=== PATIENT | male | born 1955 | race Caucasian/White ===

== ENCOUNTER → 2017-02-15 | Outpatient (CLI) | payer OTHER ==
[~2017-02-15] MED LIST: METHACHOLINE KIT (J7674) INH ONE
--- NOTE | 2017-02-15 13:47 | PFTRPT ---
Tech: Sharan SANTO RRT Age: 62 Sex: Male Race: Height: 73.00 Inches Weight: 252.00 Lbs BSA: 2.37 Diagnosis: R06.02 METHACHOLINE CHALLENGE REPORT: ORDERING PROVIDER: NAVYA Purcell DATE OF SERVICE: 02/15/17 INTERPRETATION: The study was of excellent technical quality. Under protocol, methacholine was administered. Even after a maximal dose of 25 mg (188.875 CDUs) of methacholine , no provocation dose was ever achieved. IMPRESSION: Negative methacholine challenge study. MTDD
== END ==
LOC: M CARPUL 12:22
PROVIDERS: ATTEND Nurse Practitioner Adult Health
DX: R06.02 Shortness of breath (principal)

== ENCOUNTER → 2018-07-28 | Outpatient (REF) | payer OTHER | LOC: M LAB REF 16:34 | PROVIDERS: ATTEND Family Medicine Addiction Medicine | DX: Z12.5 Encounter for screening for malignant neoplasm of prostate (principal) ==

== ENCOUNTER → 2019-03-02 | Outpatient (REF) | payer OTHER | LOC: M LAB LCGH 15:20 | PROVIDERS: ATTEND Surgery | DX: K63.5 Polyp of colon (principal) ==

== ENCOUNTER 2025-05-21 11:16 | Inpatient (IN) | payer BC, MEDICARE, SELFPAY ==
[~2025-05-21] VITALS: Ht 188 cm; Wt 104.9 kg
[2025-05-21] MEDS ORDERED: ATEN25TA PO (11:22)
[2025-05-21 11:57] LABS: BASO # 0.1 10^3/uL (0.0-0.2); BASO % 0.7 % (0.0-1.0); EOS # 0.3 10^3/uL (0.0-0.5); EOS % 2.3 % (0.0-3.0); LYMPH # 2.6 10^3/uL (1.5-5.0); LYMPH % 21.7 % (24.0-44.0); MONO # 1.1 10^3/uL (0.0-0.8); MONO % 9.3 % (2.0-8.0); NEUTROPHILS # 8.0 10^3/uL (1.5-8.5); NEUTROPHILS % 65.8 % (36.0-66.0); PLATELET COUNT, AUTOMATED 212 10^3/uL (150-450)
[2025-05-21] MEDS ORDERED: OXYB-54 PO (12:04)
[2025-05-21] MEDS ORDERED: ROSU10TA90 PO (12:04)
[2025-05-21] MEDS ORDERED: JARD1TAB3 PO (12:04)
[2025-05-21] MEDS ORDERED: JANU100T PO (12:04)
[2025-05-21] MEDS ORDERED: OMEP40CA5 PO (12:04)
[2025-05-21] MEDS ORDERED: MELO15TA28 PO (12:04)
[2025-05-21] MEDS ORDERED: GABA-1171 PO (12:04)
[2025-05-21] MEDS ORDERED: ISOVUE-370 76% 100 ML VIAL As Ordered ONE (12:10)
[2025-05-21 12:23] LABS: CK-MB VALUE MASS 2.4 NG/ML (<3.6)
[2025-05-21 12:25] LABS: ALT/SGPT 22.0 U/L (7.0-40); AST/SGOT 30.0 U/L (<34); CALCIUM LEVEL 9.7 MG/DL (8.3-10.6); CARBON DIOXIDE LEVEL 24.0 MMOL/L (20-31); CHLORIDE LEVEL 104.0 MMOL/L (98-107); CREATININE FOR GFR 1.29 MG/DL (0.70-1.30); GLOMERULAR FILTRATION RATE 59.3 (>42); POTASSIUM SERUM 4.1 MMOL/L (3.5-5.1); SODIUM LEVEL 141.0 MMOL/L (136-145)
[2025-05-21 12:26] LABS: CPK CREATINE PHOSPHOKINASE 149.0 U/L (46-171); MB/CK RELATIVE INDEX 1.61 (< OR =4)
[2025-05-21] MEDS ORDERED: HEPARIN SOD 5000 UNITS/ML 1 ML VIAL/SYRINGE IV PRN ×2 (13:05→22:00)
[2025-05-21 13:11] LABS: CK-MB VALUE MASS 2.8 NG/ML (<3.6)
[2025-05-21 13:13] LABS: CPK CREATINE PHOSPHOKINASE 132.0 U/L (46-171); MB/CK RELATIVE INDEX 2.12 (< OR =4)
[2025-05-21] MEDS: HEPARIN SOD 5000 UNITS/ML 1 ML VIAL/SYRINGE IV ONE (13:39)
[2025-05-21] MEDS: HEPARIN DRIP 25,000 UNITS in IV 1 EA IV SCH ×2 (13:40→22:52)
[2025-05-21] MEDS ORDERED: GLUCOSE 4 GM CHEW PO PRN (14:05)
[2025-05-21] MEDS ORDERED: GLUCAGON INJ 1 MG VIAL SC PRN (14:05)
[2025-05-21] MEDS ORDERED: DEXTROSE 50% 50 ML SYRINGE IV PRN (14:05)
[2025-05-21 14:08] LABS: INR 0.97
[2025-05-21] MEDS: MIDAZOLAM INJ 2 MG/2 ML VIAL IV PRN (15:14)
[2025-05-21] MEDS: NS (Normal Saline) 0.9% 1,000 ML IV SCH ×2 (15:17→16:32)
[2025-05-21] MEDS: HEPARIN 1,000 UNITS/ML 10 ML VIAL (FOR RADIOLOGY & DIALYSIS ONLY) IV PRN (15:34)
[2025-05-21] MEDS: ISOVUE-300 61% 100 ML VIAL IV SCH (16:30)
[2025-05-21] MEDS: LIDOCAINE 1% MDV 20 ML VIAL SC SCH (16:30)
[2025-05-21 18:01] VITALS: BP 120/81; TEMP 97.2; O2SAT 97
[2025-05-21 18:40] VITALS: O2SAT 94
[2025-05-21] MEDS ORDERED: HOME MED LIST COMPLETE! XX SCH (19:00)
[2025-05-21] MEDS: INSULIN LISPRO (NovoLOG) PER UNIT SC SCH ×2 (19:05→20:01)
[2025-05-21 19:34] VITALS: BP 120/72; TEMP 97.2; O2SAT 94
[2025-05-21 22:40] LABS: INR 1.06
[2025-05-22] VITALS (9 sets, daily range): BP systolic 103–170; BP diastolic 66–102; TEMP 97.2–98.3; O2SAT 92–95
[2025-05-22 05:29] LABS: PLATELET COUNT, AUTOMATED 188 10^3/uL (150-450)
[2025-05-22 05:49] LABS: CALCIUM LEVEL 8.5 MG/DL (8.3-10.6); CARBON DIOXIDE LEVEL 26.0 MMOL/L (20-31); CHLORIDE LEVEL 106.0 MMOL/L (98-107); CREATININE FOR GFR 1.14 MG/DL (0.70-1.30); GLOMERULAR FILTRATION RATE 68.8 (>42); POTASSIUM SERUM 3.9 MMOL/L (3.5-5.1); SODIUM LEVEL 141.0 MMOL/L (136-145)
[2025-05-22 05:54] LABS: INR 1.16
[2025-05-22] MEDS: ENOXAPARIN 120 MG/0.8 ML SYRINGE SC SCH (09:35)
[2025-05-22] MEDS ORDERED: ELIQ5TAB PO (10:13)
[2025-05-22] MEDS: GABAPENTIN 100 MG CAP PO SCH (21:16)
[2025-05-22] MEDS: oxyBUTYnin *XL* 5 MG TAB PO SCH (21:16)
[2025-05-22] MEDS: OMEPRAZOLE 20MG CAP PO SCH (21:16)
[2025-05-22] MEDS: ROSUVASTATIN 10 MG TAB PO SCH (21:16)
[2025-05-23 04:01] VITALS: BP 118/66; TEMP 97.4; O2SAT 94
[2025-05-23 05:37] LABS: BASO # 0.1 10^3/uL (0.0-0.2); BASO % 0.7 % (0.0-1.0); EOS # 0.5 10^3/uL (0.0-0.5); EOS % 3.9 % (0.0-3.0); LYMPH # 2.8 10^3/uL (1.5-5.0); LYMPH % 24.0 % (24.0-44.0); MONO # 1.1 10^3/uL (0.0-0.8); MONO % 9.2 % (2.0-8.0); NEUTROPHILS # 7.2 10^3/uL (1.5-8.5); NEUTROPHILS % 61.9 % (36.0-66.0); PLATELET COUNT, AUTOMATED 177 10^3/uL (150-450)
[2025-05-23 07:40] VITALS: BP 127/78; TEMP 97.1; O2SAT 94
[2025-05-23] MEDS: APIXABAN 5 MG TAB PO SCH (09:08)
[2025-05-23] MEDS: FLUZONE HIGH DOSE (65+) 0.5 ML SYRINGE (25-26) IM.IMMUN ONE (12:08)
[2025-05-24 00:21] LABS: PROTEIN C FUNCTIONAL ACTIVITY 101 % normal (70-180); PROTEIN S FUNCTIONAL ACTIVITY 84 % normal (70-150)
[2025-05-24 02:52] LABS: CARDIOLIPIN IGA ANTIBODY < 2.0 APL-U/mL (<20.0); CARDIOLIPIN IGG ANTIBODY < 2.0 GPL-U/mL (<20.0); CARDIOLIPIN IGM ANTIBODY < 2.0 MPL-U/mL (<20.0)
[2025-05-24 08:54] LABS: DRVV SCREEN 40.3 SECONDS
[2025-05-24 09:21] LABS: PTT LUPUS TYPE ANTICOAG SCREEN 1.03 (0-1.20)
[2025-05-24 16:37] LABS: PHOSPHOLIPIDS LEVEL 194 mg/dL (151-264)
[2025-05-26 02:02] LABS: FACTOR V LEIDEN FOR MEDINET NEGATIVE
[2025-05-26 03:20] LABS: ANTI THROMBIN 3 ANTIGEN IMMUNO 96 % normal (80-120); ANTI THROMBIN 3 FUNCT ACTIVITY 112 % normal (80-135)
[2025-05-28 07:33] LABS: FACTOR II PROTHROMBIN GENE AN NEGATIVE
[2025-05-30] MEDS ORDERED: APIXABAN 5 MG TAB PO SCH (09:00)
== END 2025-05-23 12:11 | disposition home or self-care (01) | DRG 163 ==
LOC: M ED 11:16 → M ED INP 13:55 → M PCU 18:02
PROVIDERS: ADMIT Internal Medicine; ATTEND Internal Medicine
PROC: 02CR3ZZ Extirpation of Matter from Left Pulmonary Artery, Percutaneous Approach (ICD-10-PCS; 2025-05-21)
PROC: B31TYZZ Fluoroscopy of Left Pulmonary Artery using Other Contrast (ICD-10-PCS; 2025-05-21)
PROC: B31SYZZ Fluoroscopy of Right Pulmonary Artery using Other Contrast (ICD-10-PCS; 2025-05-21)
PROC: 02CQ3ZZ Extirpation of Matter from Right Pulmonary Artery, Percutaneous Approach (ICD-10-PCS; principal; 2025-05-21 14:00)
DX: I26.99 Other pulmonary embolism without acute cor pulmonale (principal); I21.A1 Myocardial infarction type 2; E87.20 Acidosis, unspecified; I10 Essential (primary) hypertension; E78.5 Hyperlipidemia, unspecified; E11.40 Type 2 diabetes mellitus with diabetic neuropathy, unspecified; D45 Polycythemia vera; N32.81 Overactive bladder; M19.90 Unspecified osteoarthritis, unspecified site; Z79.899 Other long term (current) drug therapy; J45.909 Unspecified asthma, uncomplicated

== ENCOUNTER → 2025-06-10 | Outpatient (POV) | payer MEDICARE ==
[~2025-06-10] MED LIST changes: +ATEN25TA PO; +ELIQ5TAB PO; +GABA-1171 PO; +JANU100T PO; +JARD1TAB3 PO; +MELO15TA28 PO; -METHACHOLINE KIT (J7674) INH ONE; +OMEP40CA5 PO; +OXYB-54 PO; +ROSU10TA90 PO
== END ==
LOC: M IRPOV 10:30 → EDSTATUS 07-22 12:20
PROVIDERS: ATTEND Registered Nurse School
DX: Z48.812 Encounter for surgical aftercare following surgery on the circulatory system (principal); Z86.711 Personal history of pulmonary embolism; Z79.01 Long term (current) use of anticoagulants